=== PATIENT | female | born 1950 | race Caucasian/White ===

== ENCOUNTER 2018-05-11 15:55 | Observation (INO) | payer MEDICARE, OTHER ==
[~2018-05-11] VITALS: Ht 170.2 cm; Wt 122.5 kg
[~2018-05-11 15:55] MED LIST: CITALOPRAM HBR20 MG PO; LISINOPRIL10 MG PO; PROAIR HFA INH8.5 GM INH
[2018-05-11 17:46] LABS: BASOPHILS # (AUTO) 0.1 (0.0-0.1); BASOPHILS % 0.7 % (0.0-1.0); EOSINOPHILS # (AUTO) 0.2 (0.0-0.4); EOSINOPHILS % 1.6 % (0.0-6.0); HEMATOCRIT 44.8 % (34.2-44.1); HEMOGLOBIN 14.1 g/dL (12.0-16.0); LYMPHOCYTES # (AUTO) 2.2 (1.0-3.2); LYMPHOCYTES % 18.4 % (18.0-39.1); MEAN CORPUSCULAR HEMOGLOBIN 27.3 pg (28-32); MEAN CORPUSCULAR HGB CONC 31.5 g/dL (31-35); MEAN CORPUSCULAR VOLUME 86.7 fL (81-99); MONOCYTES # (AUTO) 0.9 (0.2-0.8); MONOCYTES % 7.4 % (4.4-11.3); NEUTROPHILS # (AUTO) 8.3 (2.1-6.9); NEUTROPHILS % 71.3 % (38.7-80.0); PLATELET COUNT 344 x10e3/uL (140-360); RED BLOOD COUNT 5.17 x10e6/uL (3.6-5.1)
[2018-05-11 17:50] LABS: BILIRUBIN,URINE NEGATIVE (NEGATIVE); CLARITY,URINE SL CLOUDY (CLEAR); COLOR,URINE YELLOW (YELLOW); KETONES,URINE TRACE (NEGATIVE); LEUKOCYTE ESTERASE ,URINE TRACE (NEGATIVE); NITRITE,URINE NEGATIVE (NEGATIVE); PROTEIN,URINE DIPSTICK NEGATIVE (NEGATIVE); URINE UROBILINOGEN 0.2 mg/dL (0.2 - 1)
[2018-05-11 17:58] LABS: AMORPHOUS SEDIMENT,URINE FEW (FEW); BACTERIA,URINE FEW /HPF; CALCIUM OXALATE CRYSTALS,UR MODERATE (FEW); EPITHELIAL CELLS,URINE MODERATE /LPF; WBC,URINE (MAN) 0-5 /HPF (0-5)
[2018-05-11 17:59] LABS: ALANINE AMINOTRANSFERASE 11 IU/L (0-55); ALBUMIN 3.4 g/dL (3.5-5.0); ALKALINE PHOSPHATASE 90 IU/L (40-150); BLOOD UREA NITROGEN 12 mg/dL (7-26); BUN/CREATININE RATIO 15 (6-25); CALCIUM 8.9 mg/dL (8.4-10.2); CARBON DIOXIDE 24 mmol/L (22-29); CHLORIDE 102 mmol/L (98-107); CREATINE KINASE 50 IU/L (29-168); CREATININE, SERUM 0.82 mg/dL (0.57-1.11); EST GLOMERULAR FILTRATION RATE > 60 ML/MIN (60-); GLUCOSE 102 mg/dL (74-118); SODIUM 136 mmol/L (136-145)
[2018-05-11 18:56] LABS: INR 0.86; PROTHROMBIN TIME 12.2 seconds (11.9-14.5)
[2018-05-11 19:09] LABS: PARTIAL THROMBOPLASTIN TIME 20.1 seconds (23.8-35.5)
--- NOTE | 2018-05-11 19:13 | NUR ---
Walking rounds with VICENTE Núñez.
--- NOTE | 2018-05-11 19:13 | Diagnostic Imaging Report ---
EXAMINATION: CHEST SINGLE (PORTABLE) INDICATION: Possible CHF. High blood pressure. Shortness of breath x2 days. COMPARISON: None FINDINGS: AP view TUBES and LINES: None. LUNGS: Lungs are well inflated. Elevated left hemidiaphragm. Lungs are clear. There is no evidence of pneumonia or pulmonary edema. PLEURA: No pleural effusion or pneumothorax. HEART AND MEDIASTINUM: The cardiomediastinal silhouette is unremarkable. BONES AND SOFT TISSUES: No acute osseous lesion. Soft tissues are unremarkable. UPPER ABDOMEN: No free air under the diaphragm. IMPRESSION: No acute thoracic abnormality. Signed by: Dr. Nolan Cancino M.D. on 05/11/2018 7:09 PM
--- NOTE | 2018-05-11 21:11 | Diagnostic Imaging Report ---
EXAM: CT Chest WITH contrast (PE Protocol) INDICATION: Shortness breath. CHF. COMPARISON: Chest x-ray 05/11/2018. TECHNIQUE: Chest was scanned utilizing a multidetector helical scanner from the lung apex through the level of the diaphragm after administration of IV contrast. Thin section reconstructions were obtained with special concentration on the pulmonary arteries. Coronal and sagittal reformations were obtained. Pulmonary embolism protocol was performed. MIPS reconstruction images performed in sagittal and coronal images performed by the technologist at the scanner workstation. IV CONTRAST: 100 mL of Isovue 370 COMPLICATIONS: None RADIATION DOSE: Total DLP: 658.75 mGy*cm Estimated effective dose: (DLP x 0.014 x size factor) mSv CTDIvol has been reviewed. It is below the limits set by the Radiation Protocol Committee (RPC). Dose modulation, iterative reconstruction, and/or weight based adjustment of the mA/kV was utilized to reduce the radiation dose to as low as reasonably achievable. FINDINGS: LINES/ TUBES: None. LUNGS AND AIRWAYS: No filling defect is identified within the pulmonary arteries to the segmental level. There is bibasilar atelectasis. Airways are normal. 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 PLEURA: The pleural spaces are clear. HEART AND MEDIASTINUM: The thyroid gland is normal. No mediastinal, hilar or axillary lymphadenopathy. The heart is normal in size. There is no pericardial effusion. . Main pulmonary artery measures 2.3 cm in diameter and the ascending aorta measures 3.2 cm. UPPER ABDOMEN: Unremarkable BONES: The visualized bony thorax is within normal limits. SOFT TISSUES: Unremarkable. IMPRESSION: 1. No pulmonary emboli. 2. 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 Signed by: Dr. Nolan Cancino M.D. on 05/11/2018 9:08 PM
[2018-05-11] MEDS ORDERED: ONDANSETRON HCL INJ 2MG/ML 2ML 2 MG/ML VIAL IV PRN (22:00)
[2018-05-11] MEDS ORDERED: SODIUM CHLORIDE FLUSH 10 ML SYR INJ PRN (22:00)
--- OUTSIDE RECORDS SUMMARY | 2018-05-11 22:02 | XMS REPORT ---
Author Author [facility] Address Unknown Phone Unavailable Care Team Providers Care Staffing Branch Manager Name Role Phone YOLANDA April MOORE Unavailable Unavailable Problems This patient has no known problems. Allergies, Adverse Reactions, Alerts This patient has no known allergies or adverse reactions. Medications This patient has no known medications. Results Test Description Test Time Test Comments Text Results Atomic Results Result Comments CT CHEST W 2018-05-11 20:26:00 [facility] [address] [address] Patient Name: AB RODGERS MR #: [id number] : 1950 Age/Sex: 68/F Req #: [id number] Adm Physician: Ordered by: ABHI WALKER ECONOMIC SPECIALIST Report #: [id number] Location: ER Room/Bed: Procedure: [id number] CT/CT CHEST W Exam Date: 05/11/18 Exam Time: 1950 REPORT STATUS: Signed EXAM: CT Chest WITH contrast (PE Protocol) INDICATION: Sherrill rtness breath. CHF. COMPARISON: Chest x-ray 05/11/2018. TECHNIQUE: Chest was scanned utilizing a multidetector helical scanner from the lung apex through the level of the diaphragm after administration of IV contrast. Thin section reconstructions were obtained with special concentration on the pulmonary arteries. Coronal and sagittal reformations were obtained. Pulmonary embolism protocol was performed. MIPS reconstruction images performed in sagittal and coronal images performed by the technologist at the scanner workstation. IV CONTRAST: 100 mL of Isovue 370 COMPLICATIONS: None RADIATION DOSE: Total DLP: 658.75 mGy*cm Estimated effective dose: (DLP x 0.014 x size factor) mSv CTDIvol has been reviewed. It is below the limits set by the Radiation Protocol Committee (RPC). Dose modulation, iterative reconstruction, and/or weight based adjustment of the mA/kV was utilized to reduce the radiation dose to as low as reasonably achievable. FINDINGS: LINES/ TUBES: None. LUNGS AND AIRWAYS: No filling defect is identified within the pulmonary arteries to the segmental level. There is bibasilar atelectasis. Airways are normal. 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 PLEURA: The pleural spaces are clear. HEART AND MEDIASTINUM: The thyroid gland is normal. No mediastinal, hilar or axillary lymphadenopathy. The heart is normal in size. There is no pericardial effusion. . Main pulmonary artery measures 2.3 cm in diameter and the ascending aorta measures 3.2 cm. UPPER ABDOMEN: Unremarkable BONES: The visualized bony thorax is within normal limits. SOFT TISSUES: Unremarkable. IMPRESSION: 1. No pulmonary emboli. 2. 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 Signed by: Dr. Elias Cancino M.D. on 05/11/2018 9:08 PM Dictated By: ELIAS CANCINO MD 07 Transcribed By: GRACIELA on 05/11/182107 COPY TO: ABHI WALKER NP CHEST SINGLE (PORTABLE) 2018-05-11 19:09:00 [address] [address] Patient Name: AB RODGERS MR #: [id number] : 1950 Age/Sex: 68/F Req #: [id number] Adm Physician: Ordered by: ABHI WALKER NP Report #: [id number] Location: ER Room/Bed: Procedure: [id number] DX/CHEST SINGLE (PORTABLE) Exam Date: 05/11/18 Exam Time: 1745 REPORT STATUS: Signed EXAMINATION: CHEST SINGLE (PORTABLE) INDIC ATION: Possible CHF. High blood pressure. Shortness of breath x2 days. COMPARISON: None FINDINGS: AP view TUBES and LINES: None. LUNGS: Lungs are well inflated. Elevated left hemidiaphragm. Lungs are clear. There is no evidence of pneumonia or pulmonary edema. PLEURA: No pleural effusion or pneumothorax. HEART AND MEDIASTINUM: The cardiomediastinal silhouette is unremarkable. BONES AND SOFT TISSUES: No acute osseous lesion. Soft tissues are unremarkable. UPPER ABDOMEN: No free air under the diaphragm. IMPRESSION: No acute thoracic abnormality. Signed by: Dr. Elias Cancino M.D. on 05/11/2018 7:09 PM Dictated By: ELIAS CANCINO MD 08 Transcribed By: GRACIELA on 05/11/181908 COPY TO: ABHI WALKER NP
[2018-05-11] MEDS ORDERED: IOPAMIDOL 370 MG/ML 200 ML INFUS..BTL INJ ONE (22:35)
[2018-05-11] MEDS ORDERED: SODIUM CHLORIDE 0.9% 50ML 50 ML ONE (22:35)
[2018-05-11 23:45] VITALS: BP 159/75
--- NOTE | 2018-05-11 23:45 | NUR ---
Got report from Melissa, ER nurse. Patient came via wheelchair. Pain in right shoulder. Call light within reach.
[2018-05-12] VITALS (9 sets, daily range): BP systolic 126–166; BP diastolic 62–92
--- NOTE | 2018-05-12 01:30 | NUR ---
Called and talked to Dr. Mcdaniel about patient having pain in right shoulder. Dr. Mcdaniel ordered [place] 10 mg PO
[2018-05-12] MEDS ORDERED: PANTOPRAZOLE SO40 MG PO (01:44)
[2018-05-12] MEDS ORDERED: HYDROCODONE/APAP 10MG-325MG TAB PO PRN (01:45)
[2018-05-12] MEDS ORDERED: SYMBICORT 16010.2 GM (01:54)
[2018-05-12] MEDS ORDERED: FLUTICASONE PRO16 GM (01:54)
[2018-05-12] MEDS ORDERED: TYLENOL WITH C1 EACH PO (01:54)
[2018-05-12] MEDS ORDERED: CYCLOBENZAPRINE5 MG PO (01:54)
[2018-05-12] MEDS ORDERED: AMLODIPINE BESY10 MG PO (01:54)
[2018-05-12] MEDS ORDERED: MONTELUKAST SOD10 MG PO (01:54)
[2018-05-12] MEDS ORDERED: ULTRAM50 MG PO (01:54)
[2018-05-12] MEDS ORDERED: LISINOPRIL 10 MG TAB PO SCH (06:00)
--- NOTE | 2018-05-12 07:45 | NUR ---
GAVE REPORT TO ONCOMING NURSE. NO PAIN OR DISCOMFORT. CALL LIGHT WITHIN REACH.
[2018-05-12 08:18] LABS: CREATINE KINASE MB 0.9 ng/mL (0-5.0)
[2018-05-12] MEDS ORDERED: BUDESONIDE/FORMOTEROL 160/4.5MCG INHALER INH SCH (09:00)
[2018-05-12] MEDS: CITALOPRAM HYDROBROMIDE 20 MG TAB PO SCH (09:10)
[2018-05-12] MEDS: ASPIRIN 81 MG ENTERIC COATED PO SCH (09:10)
[2018-05-12] MEDS: MONTELUKAST SODIUM 10 MG TAB PO SCH (09:10)
[2018-05-12] MEDS: AMLODIPINE BESYLATE 10 MG TAB PO SCH (09:10)
[2018-05-12] MEDS: PANTOPRAZOLE SOD 40 MG TABEC PO SCH (09:10)
[2018-05-12] MEDS: BUDESONIDE/FORMOTEROL 160/4.5MCG INHALER INH SCH ×2 (09:58→19:40)
[2018-05-12] MEDS ORDERED: ALBUTEROL/IPRATROPIUM 3 ML NEB NEB PRN (11:00)
[2018-05-12] MEDS ORDERED: ALBUTEROL/IPRATROPIUM 3 ML NEB NEB SCH (11:00)
--- NOTE | 2018-05-12 13:20 | Consultation ---
DATE OF CONSULTATION: 05/12/2018 Cardiology Consultation REASON FOR CONSULTATION: Dyspnea on exertion. HISTORY OF PRESENT ILLNESS: This is a 68-year-old woman with history of hypertension and asthma, who presents with complaints of shortness of breath. The patient reports that [place] out of town, she drove in from out of town and noticed that she was short of breath on Thursday. Since then, she has also noted symptoms of orthopnea as well as paroxysmal nocturnal dyspnea. She subsequently noted lower extremity edema beginning on Thursday. Due to her symptoms, she presented to the ER for further evaluation. She denies any chest pain or palpitations, but does endorse dyspnea on exertion with walking to the bathroom. REVIEW OF SYSTEMS: Negative except as per HPI. PAST MEDICAL HISTORY: 1. Hypertension. 2. Asthma. 3. Hiatal hernia. PAST SURGICAL HISTORY: 1. Right shoulder surgery in March 2018. 2. Left Achilles tendon surgery. 3. Hysterectomy with tubal ligation. 4. Ovarian cyst. ALLERGIES: PLEASE SEE EMR. MEDICATIONS: Please see medication list. SOCIAL HISTORY: Denies tobacco, alcohol, or illicit drugs. FAMILY HISTORY: Pertinent for father and brother, who of myocardial infarctions as well as siblings who have had three-vessel CABG and stents. PHYSICAL EXAMINATION: VITAL SIGNS: Temperature 97.2 degrees, pulse 74, respiratory rate 16, blood pressure 141/62, and oxygen saturation 96% on 2 L nasal cannula. GENERAL: Obese woman, in no acute distress. HEENT: Normocephalic, atraumatic. Pupils equal. No scleral icterus. NECK: Supple. No thyromegaly or cervical lymphadenopathy. No carotid bruits. LUNGS: Clear to auscultation bilaterally. No wheezes or crackles. CARDIOVASCULAR: Normal rate. Regular rhythm. No murmur. Normal S1, S2. ABDOMEN: Soft, nontender. EXTREMITIES: No edema. NEUROLOGIC: Nonfocal exam. LABORATORY DATA: WBC 11.68, hemoglobin 14.1, hematocrit 44.8, and platelets 344. Sodium 136, potassium 4, chloride 102, CO2 of 24, BUN 12, creatinine 0.82. Troponin 0.001. Cholesterol 160, triglycerides 68, LDL 92, and HDL 54. EKG; sinus tachycardia with septal infarct, age undetermined. CT chest; no pulmonary emboli, mixture of left diaphragmatic hernia and left diaphragmatic weakness/eventration resulting in protrusion of greater than 50% of the stomach into the thorax. IMPRESSION: 1. Dyspnea. 2. Hypertension. 3. Hiatal hernia. 4. Asthma. RECOMMENDATIONS: Continue current cardiac medications. We will obtain echocardiogram to evaluate LV function as well as diastolic function. Discussed low-fat, low-cholesterol, low-sodium diet, exercise and weight loss. Further evaluation to follow pending further testing. Thank you for this consult. We will continue to follow. Cony Cisneros MD ABS/MODL /[id number]
[2018-05-12 17:53] LABS: CREATINE KINASE MB 0.7 ng/mL (0-5.0)
--- NOTE | 2018-05-12 19:19 | NUR ---
rounded with public policy professor nurse, patient aware of change and family at bedside. Call shook within reach and bed in lowest position
--- NOTE | 2018-05-12 19:28 | NUR ---
Report received and walking rounds complete. Pt resting in bed and in no apparent distress. Pt family at bedside. All safety measures ensured, bed alarm on, and pt call shook near.
[2018-05-13 00:32] VITALS: BP 144/78
[2018-05-13 04:00] VITALS: BP 155/73
[2018-05-13] MEDS: BUDESONIDE/FORMOTEROL 160/4.5MCG INHALER INH SCH (07:00)
--- NOTE | 2018-05-13 07:11 | NUR ---
Report given and walking rounds complete.
[2018-05-13 07:40] VITALS: BP 137/70
[2018-05-13 07:52] VITALS: BP 137/70
[2018-05-13] MEDS: ASPIRIN 81 MG ENTERIC COATED PO SCH (08:07)
[2018-05-13] MEDS: PANTOPRAZOLE SOD 40 MG TABEC PO SCH (08:07)
[2018-05-13] MEDS: CITALOPRAM HYDROBROMIDE 20 MG TAB PO SCH (08:07)
[2018-05-13] MEDS: MONTELUKAST SODIUM 10 MG TAB PO SCH (08:07)
[2018-05-13] MEDS: AMLODIPINE BESYLATE 10 MG TAB PO SCH (08:07)
== END 2018-05-13 08:54 | disposition home or self-care (01) ==
LOC: ER 15:55 → ERHOLD 21:59 → IMCU 05-12 00:12
PROVIDERS: ADMIT Internal Medicine; ATTEND Internal Medicine
DX: R06.00 Dyspnea, unspecified (principal); I10 Essential (primary) hypertension; J45.909 Unspecified asthma, uncomplicated; K21.9 Gastro-esophageal reflux disease without esophagitis; K44.9 Diaphragmatic hernia without obstruction or gangrene; J44.9 Chronic obstructive pulmonary disease, unspecified
CPT/HCPCS: 36415 ×2; 71045; 71260; 80053; 80061; 81001; 82550 ×2; 82553 ×2; 83880; 84484 ×2; 85025; 85379; 85610; 85730; 93005; 93306; 93970; 94664 ×2; 99284; G0378 ×3; Q9967; S0164 ×2